=== PATIENT | male | born 1950 | race Caucasian/White ===

== ENCOUNTER 2018-05-08 14:49 | Day surgery (SDC) | payer MEDICARE ==
[2018-05-08] MEDS ORDERED: Cyclopentolate 1% Opth Drop 2 ML BOT ONE (15:17)
[2018-05-08] MEDS ORDERED: Phenylephrine 2.5% Ophth Soln 5 ML BOT ONE (15:18)
[2018-05-08] MEDS ORDERED: Fluorouracil 100 MG, Enoxaparin Sodium 25 MG, EPINEPHrine 0.3 MG in Ophthalmic Irrigati... IVPB SCH (16:00)
[2018-05-08] MEDS ORDERED: Midazolam HCl 2 mg/2 ml Vial ONE (17:21)
[2018-05-08] MEDS ORDERED: Fentanyl 100 MCG/2 ML VIAL ONE (17:21)
--- NOTE | 2018-05-09 00:23 | OP ---
DATE OF PROCEDURE: 05/08/2018 PREOPERATIVE DIAGNOSIS: Rhegmatogenous retinal detachment, left eye. POSTOPERATIVE DIAGNOSIS: Rhegmatogenous retinal detachment, left eye. PROCEDURES PERFORMED: Pars plana vitrectomy, retinal detachment repair of the left eye. ANESTHESIA: Local with monitored anesthesia care. PROCEDURE IN DETAIL: The patient was identified in the preoperative holding area. Appropriate informed consent for the planned surgical procedure on the left eye had been obtained. The patient was transported to the operative suite. Appropriate cardiopulmonary monitoring was established. Local anesthesia was obtained using retrobulbar modified Van Lint lid block using 50:50 mixture of 4% lidocaine and 0.75% bupivacaine. The patient was prepped and draped in usual sterile manner for ophthalmic surgery on the left eye. Lid speculum was placed on the left eye. A 25-gauge trocar was placed through the conjunctiva and sclera superotemporally, inferotemporally, and superonasally. Infusion line was placed inferotemporally. Light pipe and vitreous cutter were inserted into the eye. Core vitrectomy was performed. Vitreous hemorrhage was cleared from the eye, identifying a macula off retinal detachment. There were tears at the 2 o'clock and 1 o'clock positions. Vitreous base dissection was accomplished using a wide-field viewing system. Posterior drained retinotomy was created superior to the nerve. Complete air-fluid exchange was performed and 10 minutes was allowed for fluid to drain posteriorly. Laser was placed around the areas of the retinal breaks using Endolaser delivery device. No further holes, breaks, or tears were identified. 28% sulfur hexafluoride gas was infused into the eye. Supranasal sclerotomies were suture closed. Retrobulbar Kenalog and subconjunctival Ancef were placed. Atropine antibiotic ointment was placed and the eye was patched and shielded. The patient was taken to the postop recovery unit in good condition, having suffered no immediate perioperative complications. The patient was instructed to keep the patch and shield on, avoid lifting and bending, position the left side down. Followup appointment with Dr. Ruelas. Job ID: [id number]
== END 2018-05-09 19:10 | disposition home or self-care (01) ==
LOC: SDC 14:49
PROVIDERS: ATTEND Ophthalmology Retina Specialist
PROC: 08T53ZZ Resection of Left Vitreous, Percutaneous Approach (ICD-10-PCS; principal; 2018-05-08)
PROC: 08QF3ZZ Repair Left Retina, Percutaneous Approach (ICD-10-PCS; 2018-05-08)
DX: H33.022 Retinal detachment with multiple breaks, left eye (principal); H43.12 Vitreous hemorrhage, left eye; Z88.8 Allergy status to other drugs, medicaments and biological substances; Z88.7 Allergy status to serum and vaccine
CPT/HCPCS: 67025; J0171; J1650; J2250; J3010; J9190